=== PATIENT | male | born 1940 | race African-American/Black ===

== ENCOUNTER 2016-11-12 01:55 | Emergency (ER) | payer OTHER ==
[~2016-11-12] VITALS: Ht 180.3 cm; Wt 81.6 kg
--- NOTE | 2016-11-12 02:27 | PHYS DOC ---
Adult General Chief Complaint Chief Complaint: altered mental status HPI HPI Patient is a 76 year old male who presents to the emergency department with altered mental status. Patient was brought to the emergency department by EMS from [facility]. The patient was noted to have increasing lethargy, hypothermia, and bradycardia at the facility. Patient has history of dementia and is nonverbal at baseline per records. Patient unable to provide any history. Patient was started on supplemental oxygen prior to arrival but had no other treatments. No further information available at this time. Review of Systems Review of Systems Unable to obtain from patient Family History Family History Noncontributory Current Medications Current Medications Current Medications Medications (Trade) Dose Ordered Sig/Emerald Start Time Stop Time Status Last Admin Dose Admin Midazolam HCl 100 ml @ 0 mls/hr CONT PRN 11/12/16 03:00 UNV Sodium Chloride 1,000 ml @ As Directed STK-MED ONCE 11/12/16 02:32 11/12/16 02:33 DC Allergies Allergies No known drug allergies Physical Exam Physical Exam Constitutional: Obtunded, bradycardic, hypothermic, withdraws to painful stimulus. [] HENT: Normocephalic, atraumatic, bilateral external ears normal, oropharynx moist, no oral exudates, nose normal. [] Eyes: Pinpoint pupils, conjunctiva normal, no discharge. [] Neck: Normal range of motion, no tenderness, supple, no stridor. [] Cardiovascular: Bradycardia, regular rhythm, no murmur [] Lungs & Thorax: Slow respirations, lungs clear to auscultation [] Abdomen: Bowel sounds normal, soft, no tenderness, no masses, no pulsatile masses. [] Skin: Cool, dry, no erythema, no rash. [] Extremities: No tenderness, no cyanosis, no clubbing, ROM intact, no edema. [] Neurologic: GCS 6, obtunded, withdraws all extremities to painful stimulus, does not follow commands. [] Current Patient Data Lab Results Laboratory Tests Test 11/12/16 02:11 POC Arterial pH 7.38 (7.35-7.45) POC Arterial pCO2 58 mmHg (35-45) H POC Arterial pO2 96 mmHg (75-100) Arterial Blood HCO3 34 mmol/L (21-28) H POC Arterial Blood O2 Sat 97 % (95-99) POC FiO2 21.0 EKG EKG Interpreted by me: Heart rate 46, sinus bradycardia, prolonged QT interval, normal axis, no acute ST/T-wave abnormalities present [] Radiology/Procedures Radiology/Procedures One view AP chest x-ray interpreted by me: ET tube in satisfactory position, no pulmonary infiltrates or effusions, normal cardiac silhouette [address] [address] IMAGING REPORT Signed PATIENT: NEHEMIAH NAYLOR ACCOUNT: [id number] : 1940 LOCATION: ER AGE: 76 SEX: M EXAM STATUS: REG ER ORD. PHYSICIAN: YOUSUF LOZOYA MD REASON: Found unresponsive, weakness, altered mental status PROCEDURE: CT CODE STROKE HEAD WO CT HEAD INDICATION: Found unresponsive, weakness, lethargic now, low heartrate. No priors. COMPARISON: None Available. TECHNIQUE: 5 mm contiguous axial images were obtained from the skull base to the vertex Exposure: One or more of the following individualized dose reduction techniques were utilized for this examination: 1. Automated exposure control 2. Adjustment of the mA and/or kV according to patient size 3. Use of iterative reconstruction technique FINDINGS: Moderate bilateral periventricular white matter hypodensities likely chronic small vessel ischemic disease. Cavum septum pellucidum identified. No evidence of acute intracranial hemorrhage. No extra-axial fluid collections. No mass effect or midline shift. Ventricular size is appropriate. Basal cisterns are patent. No fractures identified.Ortiz-white differentiation is preserved.Globes and orbits are within normal limits. Paranasal sinuses and mastoid air cells are clear. IMPRESSION: 1. No acute intracranial findings. Report called to ER physician at time of dictation. Electronically signed by: Bryce Madison MD (11/12/2016 2:38 AM) DICTATED AND SIGNED BY: BRYCE MADISON MD DATE: 11/12/16230 CC: YOUSUF LOZOYA MD; NON,STAFF ~ [] Course & Med Decision Making Course & Med Decision Making Pertinent Labs and Imaging studies reviewed. (See chart for details) Patient appeared in an obtunded state and was found to be profoundly hypothermic. Patient's GCS was 6. Patient was given IV Narcan with no response. Patient also was given IV dextrose with no improvement in symptoms. Due to profoundly depressed mental status and concern for possible airway compromise, the patient was intubated as outlined in the procedure note. The cause of patient's encephalopathy appears to be metabolic and may be influenced by patient's hypothermia and dehydration. However it is suspected that patient may have another etiology contributing to his current mental status. The patient will need a higher level of care for further management. I spoke with Dr. Mead, hospitalist at [facility], and he accepted care patient for transfer. Patient transferred by ground EMS as a direct admit. Critical care time excluding procedures: 65 minutes Dragon Disclaimer Dragon Disclaimer This chart was dictated in whole or in part using Voice Recognition software in a busy, high-work load, and often noisy Emergency Department environment. It may contain unintended and wholly unrecognized errors or omissions. Intubation Procedure Intub Indication: Comatose patient Consent: Unable to obtain from patient due to critical illness Medications Used: Etomidate 20 mg, succinylcholine 100 mg Procedure: The patient was placed in the appropriate position. Cricoid pressure was utilized. Intubation was performed under direct laryngoscopy with placement of a 7.5 endotracheal tube. Secured at 23 cm at the teeth. Initial confirmation of placement included entitle CO2 colorimetric change, symmetric chest rise and equal breath sounds bilaterally. A chest x-ray to verify correct placement of the tube showed satisfactory position. The patient tolerated the procedure without difficulty. Complications: None Departure Departure: Impression: Primary Impression: Acute metabolic encephalopathy Additional Impressions: Hypothermia Dehydration Bradycardia Disposition: 05 XFER OTHER Condition: CRITICAL Problem Qualifiers Additional Impressions: Hypothermia Encounter type: initial encounter Qualified Codes: T68.XXXA - Hypothermia, initial encounter YOUSUF LOZOYA MD Nov 12, 2016 02:27
[2016-11-12] MEDS ORDERED: IV NORMAL SALINE 1,000ML 1,000 ML ONE ×2 (02:32→03:24)
[2016-11-12 02:33] LABS: BASO % 0 % (0-3); EOS % 1 % (0-3); HEMATOCRIT 35.1 % (39.0-53.0); HEMOGLOBIN 11.5 g/dL (13.0-17.5); LYMPH # 1.3 x10^3/uL (1.0-4.8); LYMPH % 45 % (24-48); MEAN CORPUSCULAR HEMOGLOBIN 31 pg (25-35); MEAN CORPUSCULAR HGB CONC 33 g/dL (31-37); MEAN CORPUSCULAR VOLUME 94 fL (79-100); MONO # 0.2 x10^3/uL (0.0-1.1); MONO % 7 % (0-9); NEUT # 1.3 x10^3uL (1.8-7.7); NEUT % 47 % (31-73); PLATELET COUNT 78 x10^3/uL (140-400); RED BLOOD COUNT 3.73 x10^6/uL (4.30-5.70); RED CELL DISTRIBUTION WIDTH 16.7 % (11.5-14.5); WHITE BLOOD COUNT 2.9 x10^3/uL (4.0-11.0)
--- NOTE | 2016-11-12 02:42 | RAD ---
CT HEAD INDICATION: Found unresponsive, weakness, lethargic now, low heartrate. No priors. COMPARISON: None Available. TECHNIQUE: 5 mm contiguous axial images were obtained from the skull base to the vertex Exposure: One or more of the following individualized dose reduction techniques were utilized for this examination: 1. Automated exposure control 2. Adjustment of the mA and/or kV according to patient size 3. Use of iterative reconstruction technique FINDINGS: Moderate bilateral periventricular white matter hypodensities likely chronic small vessel ischemic disease. Cavum septum pellucidum identified. No evidence of acute intracranial hemorrhage. No extra-axial fluid collections. No mass effect or midline shift. Ventricular size is appropriate. Basal cisterns are patent. No fractures identified.Ortiz-white differentiation is preserved.Globes and orbits are within normal limits. Paranasal sinuses and mastoid air cells are clear. IMPRESSION: 1. No acute intracranial findings. Report called to ER physician at time of dictation. Electronically signed by: Bryce Madison MD (11/12/2016 2:38 AM)
[2016-11-12 02:53] LABS: ALBUMIN/GLOBULIN RATIO 0.7 (1.0-1.7); CALCIUM 8.9 mg/dL (8.5-10.1); CREATININE 1.2 mg/dL (0.7-1.3); GFR 71.2; MAGNESIUM 2.3 mg/dL (1.8-2.4); POTASSIUM 4.3 mmol/L (3.5-5.1); TOTAL BILIRUBIN 0.2 mg/dL (0.2-1.0); TOTAL PROTEIN 7.3 g/dL (6.4-8.2)
[2016-11-12 03:18] LABS: BACTERIA,URINE FEW /HPF (0-FEW); BILIRUBIN,URINE NEG (NEG); CLARITY,URINE CLEAR; COLOR,URINE YELLOW; GLUCOSE,URINE NEG (NEG); NITRITE,URINE NEG (NEG); RBC,URINE 0 /HPF (0-2); SQUAMOUS EPITHELIAL CELL,UR FEW /LPF; UROBILINOGEN,URINE 1 mg/dL (0.2 mg/dL); WBC,URINE 0 /HPF (0-4)
[2016-11-12] MEDS: MIDAZOLAM HCL 5 MG/5 ML VIAL IV ONE ×2 (03:30→07:40)
[2016-11-12 03:32] LABS: BARBITURATES NEG (NEG); BENZODIAZEPINES NEG (NEG); CANNABINOIDS NEG (NEG); COCAINE NEG (NEG); METHADONE NEG (NEG); OPIATES NEG (NEG); PHENCYCLIDINE NEG (NEG)
[2016-11-12] MEDS: IV NORMAL SALINE 1,000ML 1,000 ML IV ONE (03:34)
[2016-11-12] MEDS: MIDAZOLAM PREMIX 100 ML IV PRN (03:36)
[2016-11-12 03:39] LABS: AMPHETAMINE/METHAMPHETAMINE NEG (NEG)
[2016-11-12 03:39] LABS: VAL ACID 58 mcg/mL (50-100)
[2016-11-12 04:19] LABS: BGAS PH 7.6 (7.35-7.46)
[2016-11-12 04:23] LABS: BGAS PH 7.38 (7.35-7.46)
[2016-11-12 04:26] LABS: HEMOGLOBIN ISTAT 11.9 gm/dL; POTASSIUM ISTAT 4.5 mmol/L (3.5-5.0)
[2016-11-12] MEDS ORDERED: IV NORMAL SALINE 1,000ML 1,000 ML IV ONE (05:30)
[2016-11-12] MEDS ORDERED: IV DEXTROSE 5 %-0.45 % NACL 1,000 ML ONE (05:46)
--- NOTE | 2016-11-12 06:20 | ACF ---
Admission Criteria Forms MENTAL STATUS CHANGE Clinical Indications for Inpatient Care (Place 'X' for any and all applicable criteria): Ongoing inpatient care may be needed for 1 or more of the following(1)(2)(3)(5)( 6): [ ]I. Suspected serious etiology (eg, medical disorder, DENTAL CREAM MAKER event) of altered mental status [ ]II. Danger to self or others not manageable at lower level of care [ ]III. Grave disability (eg, inability to perform self care necessary at lower level of care) [ ]IV. Agitation or inappropriate behavior interfering with care for primary condition (eg, attempting to discontinue lines or drains prematurely, unable to cooperate with respiratory care) [ ]V. Delirium [A] [D][E] as described by 1 or more of the following(26): [ ]a) Delirium due to alcohol or sedative [F] withdrawal [ ]b) Delirium of uncertain etiology that has not responded to appropriate empiric treatment [ ]c) Delirium that prevents performance of a life-sustaining function (eg, feeding or hydrating oneself) [ ]. General contraindications and/or Inappropriate clinical situations for Observational Care in patients with Mental Status Change, when ANY ONE of the following is required: [ ]a) Prediction of prolongation of LOS based on ANY ONE of the following may be considered as a contraindication for observational care 2, 3, 4, 5, 6, 7, 8, 9, 10, 11 [ ]i) Age > 65 yrs. [ ]ii) Patient arriving by ambulance [ ]iii) Patient with high acuity [ ]iv) Patient requiring vital sign monitoring [ ]v) Patient on IV medication [ ]b) Systolic blood pressures greater than or equal to 180mmHg 3, 12 [ ]c) Patient with altered mental status including delirium and other alteration of consciousness, (3) [ ]d) Patient whose discharge disposition will be to a senior living home or rehabilitation home should not be managed in Emergency Department Observation Unit. CMS rule requires 3 days hospital stay before such placement.3,13 [ ]e) Patient with failure to thrive due to broad array of etiologies 3,16,17 [ ]f) Inability to ambulate 3,14 Extended stay beyond goal length of stay for the primary condition may be needed until ALL of the following are present(3)(5): [ ]a) Underlying medical etiology of mental status change is absent, or has been established and adequately treated [ ]b) Danger to self or others is absent or manageable at lower level of care. [ ]c) Behavior crisis management, including physical or chemical restraints, is not required or available at lower level of car [ ]d) Substance or alcohol withdrawal is absent or manageable at lower level of care. [ ]e) Behavioral symptoms (eg, agitation, somnolence, inappropriate behavior) are absent, or are manageable at lower level of care. The original [facility] [employer] content created by [facility] has been revised. The portions of the content which have been revised are identified through the use of italic text or in bold, and [facility] has neither reviewed nor approved the modified material. All other unmodified content is copyright [facility] [employer]. Please see references footnoted in the original [facility] edition 2016 ANA MARÍA DOUGLASS Nov 12, 2016 06:20
[2016-11-12] MEDS: HYDROCORTISONE SOD SUCC/PF 100 MG/2 ML VIAL. IV ONE (07:04)
--- NOTE | 2016-11-12 07:04 | EKG ---
[address] [address] Test Date: 2016-11-12 Test Time: 02:38:22 Pat Name: NEHEMIAH NAYLOR Department: Room: Gender: M Outside Machinist Helper: : 1940 Requested By: YOUSUF LOZOYA Order Number: [id number] Reading MD: Baldev Doll Measurements Intervals [place] Rate: 46 P: 90 MN: 172 QRS: 34 QRSD: 86 T: -156 QT: 576 QTc: 510 Interpretive Statements SINUS BRADYCARDIA ATRIAL PREMATURE COMPLEX(ES) QRS(T) CONTOUR ABNORMALITY CONSIDER ANTEROLATERAL MYOCARDIAL DAMAGE T ABNORMALITY IN ANTERIOR LEADS PROLONGED QT RI6.01 Unconfirmed report No previous ECG available for comparison Electronically Signed On 11-14-2016 10:50:40 CDT by Baldev Doll
[2016-11-12 07:09] VITALS: BP 117/72
[2016-11-12] MEDS ORDERED: IV DEXTROSE 5 %-0.45 % NACL 1,000 ML IV ONE (07:15)
[2016-11-12] MEDS ORDERED: MIDAZOLAM HCL 5 MG/5 ML VIAL ONE (07:32)
--- NOTE | 2016-11-12 08:32 | RAD ---
EXAM: 1. Chest one view. 2. Abdomen one view. HISTORY: Intubated. Nasogastric tube placement. COMPARISON: None. FINDINGS: An endotracheal tube has its tip 3 cm above the kenan. On the abdominal image, a nasogastric tube has its tip within the gastric fundus. There are no confluent infiltrates. There is no pneumothorax or pleural effusion. The heart is not enlarged. A calcified granuloma is noted on the left. There are no distended small bowel loops. There is gas distally. Stool throughout the colon is consistent with constipation. IMPRESSION: 1. No confluent infiltrates. 2. Constipation. No evidence of obstruction.
== END 2016-11-12 07:41 | disposition short-term general hospital (02) ==
LOC: ER 01:55 → EDBD 01:55 → ER 07:41
DX: G93.41 Metabolic encephalopathy (principal); T68.XXXA Hypothermia, initial encounter; E86.0 Dehydration; R00.1 Bradycardia, unspecified
CPT/HCPCS: 31500; 36415; 36600; 70450; 71010; 74000; 80053; 80164; 80305; 81001; 82533; 82803; 82947; 83605; 83735; 85027; 85610; 85730; 87040; 87205; 93005; 94002; 96365; 96366; 96375; 99291; G0480; J2250; 80047; G0481; J7030